=== PATIENT | female | born 1980 | race Caucasian/White ===

== ENCOUNTER → 2018-04-04 | Outpatient (CLI) | payer BC ==
--- NOTE | 2018-04-04 09:42 | CT ---
EXAMINATION TYPE: CT sinus wo con DATE OF EXAM: 04/04/2018 COMPARISON: NONE HISTORY: Patient complains of recurrent sinus infections, chronic sinus drainage, and chronic sinus p ressure. Chronic sinusitis per order. CT DLP: 654.4 mGycm. Automated Exposure Control for Dose Reduction was Utilized. TECHNIQUE: CT scan of the sinuses is performed without contrast, axial images are obtained, coronal r eformatted images are also reviewed. FINDINGS: There are at least 2 small mucous retention cysts or polyps in the inferior right maxillary sinus measuring up to 1.3 cm on long axis. There is minimal mucosal thickening in the inferior left maxillary sinus. Remainder paranasal sinuses are clear. The ostiomeatal complex is patent bilaterally on the coronal images. Visualized portion of mastoid air cells show no abnormal opacification. The globes are intact bilate rally. IMPRESSION: Mild chronic maxillary sinus disease. No active or acute sinusitis
== END | disposition home or self-care (01) ==
LOC: RADCTMAIN 08:32
PROVIDERS: ATTEND Otolaryngology Otolaryngology/Facial Plastic Surgery
DX: J32.0 Chronic maxillary sinusitis (principal)
CPT/HCPCS: 70486